=== PATIENT | female | born 1995 | race Caucasian/White ===

== ENCOUNTER 2016-08-29 02:48 | Emergency (ER) | payer OTHER ==
[~2016-08-29 02:48] MED LIST: LAMO25TA PO
[2016-08-29] MEDS ORDERED: ONDANSETRON 4 MG INJ IV STA ×3 (03:04→14:37)
[2016-08-29] MEDS ORDERED: SOD CHLORIDE 0.9% 1,000 ML IV STA (03:04)
--- NOTE | 2016-08-29 03:27 | ERA ---
ER Documentation Chief Complaint Date/Time DATE: 08/29/16 TIME: 03:18 Chief Complaint Ingested unknown quantity of Lamictal because of depression HPI This 21-year-old female was brought in by paramedics as a reported ingestion of an unknown quantity of Lamictal tablets. Patient does have a bottle with many 25 mg tablets approximate 150 in the bottle. Patient states that she may have taken as many as 100. She said that she started many hours ago and finished about an hour ago. She does because she felt very depressed and wanting to hurt herself. She is on Lamictal for seizure disorder. She does not take any other medications according to the patient. Currently she states that she has nausea and some upper abdominal pain. Her only other physical symptom is feeling cold. She has not had any seizures lately. ROS All systems reviewed and are negative except as per history of present illness. Medications Home Meds Reported Medications Lamotrigine* (Lamotrigine*) 25 Mg Tablet, 25 MG PO BID, TAB 11/15/13 Allergies Allergies: Coded Allergies: No Known Allergy (Unverified , 10/04/11) PMhx/Soc History of Surgery: No Anesthesia Reaction: No Hx Neurological Disorder: Yes (SEIZURES) Hx Respiratory Disorders: No Hx Cardiac Disorders: No Hx Psychiatric Problems: No Hx Miscellaneous Medical Probl: No Hx Alcohol Use: No Hx Substance Use: No Hx Tobacco Use: Yes (ONE CIG A DAY) Physical Exam Vitals Vital Signs Date Time Temp Pulse Resp B/P Pulse Ox O2 Delivery O2 Flow Rate FiO2 08/29/16 03:09 98.1 54 24 114/82 100 Room Air Physical Exam Const: [] Mild distress, dry heaving Head: Atraumatic Eyes: Normal Conjunctiva ENT: Normal External Ears, Nose and Mouth. Neck: Full range of motion..~ No meningismus. Resp: Clear to auscultation bilaterally Cardio: Regular rate and rhythm, heart rate of 64, no murmurs Abd: Soft, mild epigastric tenderness, non distended. Normal bowel sounds Skin: No petechiae or rashes Back: No midline or flank tenderness Ext: No cyanosis, or edema Neur: Awake and alert oriented 3, cranial nerves II through XII intact, no cerebellar deficits, gait not tested Psych: Flat affect Result Diagram: 08/29/16 0330 08/29/16 033 Results 24 hrs Laboratory Tests Test 08/29/16 03:30 White Blood Count 9.910^3/ul Red Blood Count 4.0810^6/ul Hemoglobin 13.7g/dl Hematocrit 39.2% Mean Corpuscular Volume 96.1fl Mean Corpuscular Hemoglobin 33.6pg Mean Corpuscular Hemoglobin Concent 34.9g/dl Red Cell Distribution Width 11.9% Platelet Count 49769^3/UL Mean Platelet Volume 11.3fl Neutrophils % 76.9% Lymphocytes % 16.3% Monocytes % 5.5% Eosinophils % 0.4% Basophils % 0.4% Nucleated Red Blood Cells % 0.0/100WBC Neutrophils # 7.610^3/ul Lymphocytes # 1.610^3/ul Monocytes # 0.510^3/ul Eosinophils # 0.010^3/ul Basophils # 0.010^3/ul Nucleated Red Blood Cells # 0.010^3/ul Prothrombin Time 14.0Sec Prothrombin Time Ratio 1.1 INR International Normalized Ratio 1.08 Activated Partial Thromboplast Time 25.0Sec Sodium Level 141mmol/L Potassium Level 3.2mmol/L Chloride Level 104mmol/L Carbon Dioxide Level 24mmol/L Anion Gap 16 Blood Urea Nitrogen 12mg/dl Creatinine 0.65mg/dl Glucose Level 112mg/dl Calcium Level 9.5mg/dl Total Bilirubin 0.8mg/dl Direct Bilirubin 0.00mg/dl Indirect Bilirubin 0.8mg/dl Aspartate Amino Transf (AST/SGOT) 31IU/L Alanine Aminotransferase (ALT/SGPT) 18IU/L Alkaline Phosphatase 86IU/L Total Protein 8.3g/dl Albumin 4.9g/dl Globulin 3.40g/dl Albumin/Globulin Ratio 1.44 Salicylates Level < 1.0mg/dl Acetaminophen Level < 10.0ug/ml Ethyl Alcohol Level < 10.0mg/dl Current Medications Medications (Trade) Dose Ordered Sig/Tania Route PRN Reason Start Time Stop Time Status Last Admin Dose Admin Sodium Chloride (NS) 1,000 ml @ 1,000 mls/hr Q1H STAT IV 08/29/16 03:04 08/29/16 04:03 DC 08/29/16 03:21 Ondansetron HCl (Zofran Inj) 4 mg ONCE STAT IV 08/29/16 03:04 08/29/16 03:07 DC 08/29/16 03:20 Ondansetron HCl (Zofran Inj) 4 mg ONCE STAT IV 08/29/16 04:13 08/29/16 04:14 DC 08/29/16 04:21 Metoclopramide HCl (Reglan) 10 mg ONCE ONCE IV 08/29/16 04:30 08/29/16 04:31 DC 08/29/16 04:21 Potassium Chloride (Klor-Con 20) 20 meq ONCE ONCE PO 08/29/16 06:03 08/29/16 06:04 DC Procedures/MDM An adult female with a clam ingesting a large amount of a no system depressant substance. However she is been awaken emergency room the whole time. She has been monitored for 3/2 hours now. As a toxic ingestion of Lamictal would be most worrisome for causing unconsciousness and possibly respiratory depression. Patient is in stable vital signs throughout has normal laboratories. Initially had nausea and vomiting on arrival which has been resolved with IV Zofran and Reglan. She's also received a liter of IV fluids. She also had mildly decreased potassium and was able to tolerate by mouth K today with no problems. This point and then a medically clear her and I do not see medical problems preclude her from psychiatric admission frpm which I think she would benefit the most. 0316 Spoke with poison control, pharmacist Mery, who states that at this point supportive care is the best measure. She agrees admitted because the patient is wide awake and nondrowsy that is unlikely that there is very much a much itching her bloodstream currently. EKG interpretation: Normal sinus rhythm rate of 81, normal axis, no ST or T- wave changes concerning for acute ischemia, normal intervals, normal EKG. craft recruiter interpretation: Normal sinus rhythm without arrhythmia Departure Diagnosis: Primary Impression: Suicide threat or attempt Additional Impressions: Ingestion of substance Vomiting Condition: Stable CHELSI DAVIS DO Aug 29, 2016 03:27
[2016-08-29 03:47] LABS: ADD SCAN DIFF NO
[2016-08-29 03:49] LABS: BASOPHILS % 0.4 % (0.0-2.0); EOSINOPHILS % 0.4 % (0.0-7.0); HEMATOCRIT 39.2 % (37.0-47.0); HEMOGLOBIN 13.7 g/dl (12.0-16.0); LYMPHOCYTES # 1.6 10^3/ul (0.8-2.9); LYMPHOCYTES % 16.3 % (15.0-51.0); MEAN CORPUSCULAR HEMOGLOBIN 33.6 pg (29.0-33.0); MEAN CORPUSCULAR HGB CONC 34.9 g/dl (32.0-37.0); MEAN CORPUSCULAR VOLUME 96.1 fl (82.0-101.0); MEAN PLATELET VOLUME 11.3 fl (7.4-10.4); MONOCYTE # 0.5 10^3/ul (0.3-0.9); MONOCYTES % 5.5 % (0.0-11.0); NEUTROPHIL # 7.6 10^3/ul (1.6-7.5); NEUTROPHILS % 76.9 % (39.0-77.0); PLATELET COUNT 211 10^3/UL (140-415); RED BLOOD COUNT 4.08 10^6/ul (4.20-5.40); RED CELL DISTRIBUTION WIDTH 11.9 % (11.5-14.5); WHITE BLOOD COUNT 9.9 10^3/ul (4.8-10.8)
[2016-08-29 04:10] LABS: INR 1.08; PT RATIO 1.1
[2016-08-29 04:13] LABS: ALBUMIN 4.9 g/dl (3.3-4.9); CHLORIDE 104 mmol/L (97-110)
[2016-08-29 04:14] LABS: POTASSIUM 3.2 mmol/L (3.5-5.1); SODIUM 141 mmol/L (135-144)
[2016-08-29 04:16] LABS: ALANINE AMINOTRANSFERASE 18 IU/L (13-69); ALBUMIN/GLOBULIN RATIO 1.44; ALKALINE PHOSPHATASE 86 IU/L (42-121); ANION GAP 16 (8-16); ASPARTATE AMINO TRANSFERASE 31 IU/L (15-46); BILIRUBIN,INDIRECT 0.8 mg/dl (0-1.1); BILIRUBIN,TOTAL 0.8 mg/dl (0.2-1.3); BLOOD UREA NITROGEN 12 mg/dl (7-20); CARBON DIOXIDE 24 mmol/L (21-31); CREATININE 0.65 mg/dl (0.44-1.00); GLUCOSE 112 mg/dl (70-220); TOTAL PROTEIN 8.3 g/dl (6.1-8.1)
[2016-08-29 04:17] LABS: ACETAMINOPHEN < 10.0 ug/ml (10.0-30.0); CALCIUM 9.5 mg/dl (8.4-10.2); ETHANOL < 10.0 mg/dl; SALICYLATE < 1.0 mg/dl (5.0-30.0)
[2016-08-29] MEDS ORDERED: METOCLOPRAMIDE 10 MG INJ IV ONE (04:30)
--- NOTE | 2016-08-29 04:55 | PSY ---
Date/Time of Note Date/Time of Note DATE: 08/29/16 TIME: 04:55 Psychiatric Subjective Eval Consent Pt consented to telemedicine: Yes Subjective Evaluation Patient location: emergency Allergies: Coded Allergies: No Known Allergy (Unverified , 10/04/11) Psychiatric Objective Eval Mental Status Examination: Laboratory Results Laboratory Tests Test 08/29/16 03:30 White Blood Count 9.910^3/ul Red Blood Count 4.0810^6/ul Hemoglobin 13.7g/dl Hematocrit 39.2% Mean Corpuscular Volume 96.1fl Mean Corpuscular Hemoglobin 33.6pg Mean Corpuscular Hemoglobin Concent 34.9g/dl Red Cell Distribution Width 11.9% Platelet Count 80674^3/UL Mean Platelet Volume 11.3fl Neutrophils % 76.9% Lymphocytes % 16.3% Monocytes % 5.5% Eosinophils % 0.4% Basophils % 0.4% Nucleated Red Blood Cells % 0.0/100WBC Neutrophils # 7.610^3/ul Lymphocytes # 1.610^3/ul Monocytes # 0.510^3/ul Eosinophils # 0.010^3/ul Basophils # 0.010^3/ul Nucleated Red Blood Cells # 0.010^3/ul Prothrombin Time 14.0Sec Prothrombin Time Ratio 1.1 INR International Normalized Ratio 1.08 Activated Partial Thromboplast Time 25.0Sec Sodium Level 141mmol/L Potassium Level 3.2mmol/L Chloride Level 104mmol/L Carbon Dioxide Level 24mmol/L Anion Gap 16 Blood Urea Nitrogen 12mg/dl Creatinine 0.65mg/dl Glucose Level 112mg/dl Calcium Level 9.5mg/dl Total Bilirubin 0.8mg/dl Direct Bilirubin 0.00mg/dl Indirect Bilirubin 0.8mg/dl Aspartate Amino Transf (AST/SGOT) 31IU/L Alanine Aminotransferase (ALT/SGPT) 18IU/L Alkaline Phosphatase 86IU/L Total Protein 8.3g/dl Albumin 4.9g/dl Globulin 3.40g/dl Albumin/Globulin Ratio 1.44 Salicylates Level < 1.0mg/dl Acetaminophen Level < 10.0ug/ml Ethyl Alcohol Level < 10.0mg/dl Assessment Additional comments: IDENTIFYING INFORMATION: 21 year old Female patient who is currently located at the hospital and for whom psychiatric consultation was requested. SOURCES OF INFORMATION: The patient who appears to be unreliable and the medical records; the nursing staff. CHIEF COMPLAINT: the patient did not respond to this question. HISTORY OF PRESENT ILLNESS: The patient was interviewed via telemedicine in the presence of and under the supervision of nursing staff of the hospital. The consent to conducting this interview via telemedicine was obtained by the nursing staff at the hospital. Dr. Curtis reports that the patient presented after reporting that she took an OD of lamotrigine in an attempt to hurt herself. Is not on a hold. The patient is not able to participate at this time. Appears to be somewhat somnolent, wakes up to voice, then moans, and has some dry heaves, without answering to questions. PAST MEDICAL HISTORY: Unable to assess, because the patient was not able to participate in the interview. According to the chart the patient suffers from a seizure disorder. CURRENT MEDICATIONS: lamotrigine. ALLERGIES TO MEDICATIONS: Unable to assess, because the patient was not able to participate in the interview. According to the chart the patient has no known drug allergies. SOCIAL HISTORY: Unable to assess, because the patient was not able to participate in the interview. LABORATORY TESTS: CBC with MCH of 33.6, otherwise unremarkable, CMP with potassium of 3.2, alcohol not detected, other labs are pending. REVIEW OF SYSTEMS: Unable to assess, because the patient was not able to participate in the interview. MENTAL STATUS EXAMINATION: General Appearance and Behavior: somewhat somnolent, uncooperative with the interview, falls asleep during the interview, makes poor eye contact, poorly groomed, no abnormal movements noted. Speech: slow rate, regular rhythm, increased latency, normal volume, decreased amount. Flow of thought: illogical, tangential. Content of thought: positive for suicidal ideation based on staff report; unable to assess as the patient is not able to cooperate with the interview due to sedation. Mood: Unable to assess as the patient is not able to cooperate with the interview due to sedation. Affect: dysthymic, irritable. Attention: decreased based on the interview. Insight: poor. Judgment: poor. Memory: Unable to assess as the patient is not able to cooperate with the interview due to sedation. Sensorium: somnolent, wakes up to voice, then falls back asleep without answering questions. ASSESSMENT: The patient's presentation and history are consistent with the diagnosis of unspecified mood disorder. The patient presents after taking an overdose of lamotrigine in an attempt to hurt herself. The patient was not able to participate in the interview at this time due to agitation/somnolence. [place] I: unspecified mood disorder. [place] II: Deferred. [place] III: see PMH. [place] IV: social stressors. [place] V: GAF: 10. PLAN: - Medication management: Would start haloperidol 5 mg IM PRN severe agitation q4 hours. Would start diphenhydramine 50 mg IM PRN severe agitation q4 hours. Would start lorazepam 2 mg IM PRN severe agitation q4 hours Will defer to the inpatient psychiatry team for other medication changes. - Labs: No other laboratory tests are needed at this time. - Psychotherapy: Provided supportive psychotherapy and psychoeducation. - Disposition: Would recommend involuntary admission to the inpatient psychiatric unit given the severity of the patient's psychiatric condition and the fact that the patient is an imminent danger to self and/or others so long as the patient has been cleared medically for admission to psychiatry. Inpatient psychiatric admission is at this time the least restrictive environment where the patient can receive the psychiatric care that is needed. Would place on suicide precautions. The patient fulfills criteria for being placed on involuntary hold due to being a danger to self. Please call back psychiatry for an evaluation The patient is more able to participate in a psychiatric interview. Discussed about the above plan with Dr. Curtis. MILDRED STEEN MD Aug 29, 2016 04:55
[2016-08-29] MEDS ORDERED: POTASSIUM CHLORIDE (SR) 20 MEQ TAB PO ONE (06:03)
[2016-08-29 07:00] LABS: BARBITURATES Negative (NEGATIVE); BENZODIAZEPINES Positive (NEGATIVE); CANNABINOIDS Positive (NEGATIVE); COCAINE Negative (NEGATIVE); OPIATES Negative (NEGATIVE)
[2016-08-29 10:39] LABS: IRON 146 ug/dl (35-150)
[2016-08-29 10:48] LABS: TOTAL IRON BINDING CAPACITY 369 ug/dl (241-421)
[2016-08-29 13:01] LABS: IRON 83 ug/dl (35-150)
[2016-08-29 13:10] LABS: TOTAL IRON BINDING CAPACITY 349 ug/dl (241-421)
[2016-08-29] MEDS ORDERED: ONDANSETRON 4 MG INJ IM STA (15:04)
[2016-08-29 17:28] VITALS: BP 117/75; PULSE 65; RESP 16; TEMP 98.2
== END 2016-08-29 18:49 ==
LOC: E/R 02:48
DX: T42.2X2A Poisoning by succinimides and oxazolidinediones, intentional self-harm, initial encounter (principal); F17.210 Nicotine dependence, cigarettes, uncomplicated; R11.2 Nausea with vomiting, unspecified; R10.13 Epigastric pain; R40.2142 Coma scale, eyes open, spontaneous, at arrival to emergency department; R40.2252 Coma scale, best verbal response, oriented, at arrival to emergency department; R40.2362 Coma scale, best motor response, obeys commands, at arrival to emergency department
CPT/HCPCS: 36415; 80053; 80306; 80307; 83540; 85025; 85610; 85730; 93005; 96372; 96374; 96375; 96376; J2405; J2765; J7030; Z7502; Z7610

== ENCOUNTER 2016-11-07 21:48 | Emergency (ER) | payer OTHER ==
[~2016-11-07] VITALS: Ht 152.4 cm; Wt 43.0 kg
[2016-11-07 22:01] VITALS: Ht 152.4 cm; Wt 43.0 kg
[2016-11-07] MEDS ORDERED: HYDROCODONE/APAP (5/325) TAB PO ONE (23:00)
--- NOTE | 2016-11-07 23:28 | ERD ---
ER Documentation Chief Complaint Date/Time DATE: 11/07/16 TIME: 23:21 Chief Complaint RIGHT KNEE PAIN X1 DAY. FELL IN PARKING LOT HPI This 21-year-old female presents to emergency department today after mechanical trip and fall in a parking lot going into her home yesterday. Patient reports she fell onto her right knee, states she did not need assistance to get up, denies hitting her head, loss of consciousness, dizziness or any other injury. Patient reports that she was able to walk to her home and was not able to weight -bear after she sat down. Patient reports pain with weightbearing, states she used ibuprofen and Epson salt soaks for symptomatic relief of pain with little relief symptoms. Pain is greater than 5/10 on pain scale. Patient is in wheelchair with a pillow from home in a blanket stating that she is unable to ambulate. Patient denies any past history of knee injuries, denies any numbness or tingling to her right foot, denies any pain in her right hip. ROS All systems reviewed and are negative except as per history of present illness. Medications Home Meds No Active Prescriptions or Reported Meds Allergies Allergies: Coded Allergies: No Known Allergy (Unverified , 11/07/16) PMhx/Soc Medical and Surgical Hx: pt denies Surgical Hx History of Surgery: No Anesthesia Reaction: No Hx Neurological Disorder: Yes (SEIZURES) Hx Respiratory Disorders: No Hx Cardiac Disorders: No Hx Psychiatric Problems: No Hx Miscellaneous Medical Probl: No Hx Alcohol Use: No Hx Substance Use: No Hx Tobacco Use: Yes (ONE CIG A DAY) Smoking Status: Light tobacco smoker Physical Exam Vitals Vital Signs Date Time Temp Pulse Resp B/P Pulse Ox O2 Delivery O2 Flow Rate FiO2 11/07/16 22:01 99.0 83 18 126/70 99 Vitals stable, triage notes reviewed Physical Exam Const: Well hydrated, well appearing, well-nourished in no acute distress Head: Atraumatic Eyes: Normal Conjunctiva ENT: Normal External Ears, Nose and Mouth. Neck: Full range of motion..~ No meningismus. Resp: Clear to auscultation bilaterally Cardio: Regular rate and rhythm, no murmurs Abd: Soft, non tender, non distended. Normal bowel sounds Skin: No petechiae or rashes, lesion or abrasion. Patient has right patellar ecchymosis faintly noted Back: Ext: Lower Extremity -right knee Skin: No laceration or deformity Compartments: Soft Motor: [Abnormal range of motion limited extension and flexion of right knee Sensation: Intact to light touch all surfaces. Bones: Knee is tender to palpation on patella, posterior knee tenderness, Kell's negative, nontenderproximal tibia/ malleoli/foot Joints: Suspected patellar effusion limited flexion and extension posterior patellar tenderness Pulses/Perfusion: 2+ DP, Capillary refill < 2 seconds Neur: Awake and alert Psych: Normal Mood and Affect Results 24 hrs Current Medications Medications (Trade) Dose Ordered Sig/Tania Route PRN Reason Start Time Stop Time Status Last Admin Dose Admin Acetaminophen/ Hydrocodone Bitart ([place] (5/325)) 1 tab ONCE ONCE PO 11/07/16 23:00 11/07/16 23:01 DC 11/07/16 22:42 Procedures/MDM PROCEDURE: XR Knee. CLINICAL INDICATION: Right knee pain. TECHNIQUE: Three views of the right knee. COMPARISON: None available FINDINGS: There is no acute fracture or dislocation. There is mild medial compartment joint space narrowing. No joint effusion is identified. IMPRESSION: 1. No acute fracture or dislocation of the right knee. 2. Mild medial compartment joint space narrowing. This 21-year-old female presents to emergency department today for evaluation of right knee pain after mechanical trip and fall yesterday. Low suspicion for fracture dislocation or subluxation. X-ray obtained documenting no acute fracture or dislocation of the right knee, mild medial compartment joint space narrowing. Patient will be treated conservatively with rice therapy (rest ice compression elevation) , Naprosyn for pain, and crutch training. I feel the patient is stable for discharge at this time outpatient management by primary care physician possible referral to physical therapy.. I have discussed results , examination findings, the treatment plan with the patient and family present prior to discharge. Indications for emergent reevaluation, side effects of medication were also discussed. All questions were answered. Patient verbalizes understanding and agrees with plan of care. Departure Diagnosis: Primary Impression: Knee contusion Encounter type: initial encounter Laterality: right Qualified Code: S80.01XA - Contusion of right knee, initial encounter Condition: Good Patient Instructions: Contusion, Lower Extremity Referrals: [facility] Additional Instructions: Thank you for for coming to [facility] for your care today. Please ask your nurse or provider if you have questions about your care today and do not leave until all your questions have been answered. Please use any medications given as directed and follow-up with your doctor (or the doctor you were referred to) in the next 2-3 days. If you do not have a primary care doctor you may follow up at the [facility] (listed below). You may also use motrin and tylenol as needed for fever and/or pain unless instructed otherwise by your provider or nurse. Indications for more urgent follow-up have been discussed, but you may return to the Emergency Department at ANY time for any worrisome or worsening symptoms. If you have abdominal pain, please know that no test or exam you received is perfect and you should follow up within 8 hours for continued pain. If you had any imaging studies today, such as an X-Ray or CT Scan, these studies will be reviewed later by a radiologist. You will be called if there are important findings that were not identified today, so make sure the contact information you provided at registration is correct. If you received any narcotic pain control medicine today, such as Vicodin, Morphine or Dilaudid, your coordination and judgment may be affected for a number of hours. Please do not drive or operate heavy machinery, and you may want someone to assist you at home. If you were given a prescription for narcotic medication, be aware that it is very addictive- use sparingly and only if necessary. SÁNCHEZ ORELLANA Nov 07, 2016 23:27
--- NOTE | 2016-11-08 01:20 | RADRPT ---
PROCEDURE: XR Knee. CLINICAL INDICATION: Right knee pain. TECHNIQUE: Three views of the right knee. COMPARISON: None available FINDINGS: There is no acute fracture or dislocation. There is mild medial compartment joint space narrowing. No joint effusion is identified. IMPRESSION: 1. No acute fracture or dislocation of the right knee. 2. Mild medial compartment joint space narrowing. RPTAT: HTAR .Ed Gerard MD, MD Date Time Electronically viewed and signed by .Ed Gerard MD, MD on 11/08/2016 01:19 .R/
[2016-11-08] MEDS ORDERED: NAPR-260 PO (01:40)
== END 2016-11-08 02:11 | disposition home or self-care (01) ==
LOC: FTE 21:48
DX: S80.01XA Contusion of right knee, initial encounter (principal); F17.210 Nicotine dependence, cigarettes, uncomplicated; W01.0XXA Fall on same level from slipping, tripping and stumbling without subsequent striking against object, initial encounter; Y92.481 Parking lot as the place of occurrence of the external cause
CPT/HCPCS: 73562; Z7502; Z7610

== ENCOUNTER 2017-06-13 06:08 | Observation (INO) | END 2017-06-14 14:45 | disposition home or self-care (01) ==

== ENCOUNTER 2017-10-06 23:51 | Emergency (ER) | END 2017-10-07 04:12 | disposition home or self-care (01) ==